=== PATIENT | male | born 1940 | race Caucasian/White ===

== ENCOUNTER → 2019-10-22 | Outpatient (CLI) | payer MEDICARE ==
[2014-07-28 10:19] VITALS: BP 104/63
[~2019-10-22] MED LIST: BENA40TA3 PO; DOXA1TAB PO; DOXY100T PO; Diltiazem Hcl PO; ESOM40CA25 PO; Hydrochlorothiazide PO; Ibuprofen PO; OSEL75CA PO; VENTOLIN HFA18 GM INH
== END | disposition home or self-care (01) ==
LOC: LAB 13:43
PROVIDERS: ATTEND Ophthalmology
DX: Z11.59 Encounter for screening for other viral diseases (principal)
CPT/HCPCS: U0003-CS

== ENCOUNTER 2019-11-06 09:18 | Day surgery (SDC) | payer MEDICARE ==
[~2019-11-06 09:18] MED LIST changes: +BALANCED SALT IRRIG OPHTH SOLN 15 ML BOTTLE. ONE; +CHONDROIT-SOD-HYALURONATE KIT. ONE; +CHONDROITIN-SOD-HYALURONATE 0.5 ML DISP.SYRIN. OD ONE; +CIPROFLOXACIN 0.3% OPHTH SOLUTION 5ML BOTTLE. OD ONE; +GENTAMICIN SULFATE/PF 4 MG, EPINEPHrine 0.5 MG in BALANCED SALT IRR SOLN (BAG) 500 ML IO ONE; +LIDOCAINE 2% JELLY 6ML IN APPLICATOR. OD ONE; +LIDOCAINE 2% JELLY 6ML IN APPLICATOR. ONE; +NEO/POLYMYX/DEXAMETH OPHTH OINTMENT 3.5GM TUBE. ONE; +PROPARACAINE 0.5% OPHTH SOLUTION 15ML BOTTLE. OD ONE
[2019-11-06] MEDS ORDERED: IV RINGERS,LACTATED 1000ML 1,000 ML IV SCH (09:42)
[2019-11-06] MEDS: CYCLOPENTOLATE 1% OPHTH SOLUTION 2ML BOTTLE. OD SCH ×3 (10:00→10:10)
[2019-11-06] MEDS: PHENYLEPHRINE 10% OPHTH SOLUTION 5ML BOTTLE. OD SCH ×3 (10:00→10:10)
[2019-11-06] MEDS ORDERED: MIDAZOLAM HCL/PF 2 MG/2 ML VIAL. ONE (10:21)
[2019-11-06] MEDS ORDERED: LIDOCAINE 1% PF 2 ML VIAL. ONE (10:43)
--- NOTE | 2019-11-06 11:54 | OP ---
DATE OF SURGERY: 11/06/2019 PREOPERATIVE DIAGNOSIS: Cataract of the right eye. PROCEDURE: Phacoemulsification with posterior chamber intraocular lens implantation of the right eye. INDICATION: Painless progressive visual loss and difficulty reading. SURGEON: Demond Perez MD ANESTHESIA: Topical with monitored anesthesia care. DESCRIPTION OF PROCEDURE: The right eye was prepped with Betadine in the usual sterile fashion and drape. A paracentesis was performed followed by instillation of 1% preservative-free lidocaine. A temporal clear corneal incision was made and viscoelastic was injected in the anterior chamber. A capsulorrhexis was performed followed by hydrodissection. The nucleus was removed in a modified stop and chop fashion. The I/A handpiece was used to remove the remainder of the cortex and viscoelastic was injected in the capsular bag. An [place] model SN60WF with a power of 23.5 diopters was placed into the capsular bag. Balanced salt solution was used to hydrate the corneal wounds and the viscoelastic evacuated with the I/A handpiece. Once no leak was noted, Maxitrol was placed on the eye and the eye shielded and the patient was sent to the recovery room uneventfully. DEMOND PEREZ MD DR: ELAINA/yury JOB#: [id number] / [id number]
[2019-11-06 12:13] VITALS: BP 159/76
== END 2019-11-06 12:30 | disposition home or self-care (01) ==
LOC: SURG 09:18
PROVIDERS: ATTEND Ophthalmology
DX: H26.8 Other specified cataract (principal); Z11.59 Encounter for screening for other viral diseases; H54.61 Unqualified visual loss, right eye, normal vision left eye; Z88.0 Allergy status to penicillin; Z88.8 Allergy status to other drugs, medicaments and biological substances; E78.5 Hyperlipidemia, unspecified; Z79.899 Other long term (current) drug therapy
CPT/HCPCS: 66984; C1780; C9803; J0171; J1580; J2250; J3490; U0003

== ENCOUNTER → 2019-11-17 | Day surgery (SDC) | payer MEDICARE ==
[~2019-11-17] MED LIST changes: -CHONDROITIN-SOD-HYALURONATE 0.5 ML DISP.SYRIN. OD ONE; +CHONDROITIN-SOD-HYALURONATE 0.5 ML DISP.SYRIN. ONE; -CIPROFLOXACIN 0.3% OPHTH SOLUTION 5ML BOTTLE. OD ONE; +CIPROFLOXACIN 0.3% OPHTH SOLUTION 5ML BOTTLE. OS ONE; +CYCLOPENTOLATE 1% OPHTH SOLUTION 2ML BOTTLE. OS SCH; +IV RINGERS,LACTATED 1000ML 1,000 ML IV SCH; +LIDOCAINE 1%/PHENYLEPH 1.5% PF OPHTH 1 ML VIAL. ONE; -LIDOCAINE 2% JELLY 6ML IN APPLICATOR. OD ONE; +LIDOCAINE 2% JELLY 6ML IN APPLICATOR. OS ONE; +PHENYLEPHRINE 10% OPHTH SOLUTION 5ML BOTTLE. OS SCH; -PROPARACAINE 0.5% OPHTH SOLUTION 15ML BOTTLE. OD ONE; +PROPARACAINE 0.5% OPHTH SOLUTION 15ML BOTTLE. OS ONE
[2019-11-17 11:28] VITALS: BP 188/91
--- NOTE | 2019-11-17 11:43 | OP ---
DATE OF SURGERY: 11/17/2019 PREOPERATIVE DIAGNOSIS: Cataract of the left eye. PROCEDURE: Phacoemulsification with posterior chamber intraocular lens implantation of the left eye. INDICATION: Painless progressive visual loss and visually significant cataract of the left eye. SURGEON: Demond Perez MD ANESTHESIA: Topical with monitored anesthesia care. DESCRIPTION OF PROCEDURE: The left eye was prepped with Betadine in the usual sterile fashion and draped. A paracentesis was performed followed by instillation of preservative-free phenylephrine and lidocaine. A temporal clear corneal incision was made followed by instillation of viscoelastic and capsulorrhexis. Hydrodissection followed with removal of the nucleus with the phacoemulsification handpiece. The I/A handpiece was used to remove the cortex and the viscoelastic was placed into the capsular bag. An [place] model SN60WF with a power of 23.0 diopters was placed into the capsular bag and the wound was hydrated with balanced salt solution. The viscoelastic was evacuated with the I/A handpiece and once no leak was noted, Maxitrol was placed on the eye and the eye shielded and the patient was sent to the recovery room uneventfully. DEMOND PEREZ MD DR: ELAINA/yury JOB#: [id number] / [id number]
== END ==
LOC: SURG 10:19
PROVIDERS: ATTEND Ophthalmology
DX: H25.12 Age-related nuclear cataract, left eye (principal); H54.62 Unqualified visual loss, left eye, normal vision right eye
CPT/HCPCS: 66984; C1780; J0171; J1580; J3490